=== PATIENT | female | born 1970 | race Caucasian/White ===

== ENCOUNTER 2025-03-13 21:48 | Emergency (ER) | payer SELFPAY ==
[2025-03-13 21:55] VITALS: BP 118/80
[2025-03-13 22:08] LABS: % Basophils 0.7 % (0-2); % Eosinophils 2.6 % (0-6); % Immature Granulocytes 0.2 % (0-0.5); % Lymphocytes 26.9 % (20.5-51.1); % Monocytes 6.9 % (1.7-9.3); % Neutrophils 62.7 % (42.2-75.2); Absolute Basophils 0.1 10^3/uL (0-0.2); Absolute Eosinophils 0.3 10^3/uL (0-0.7); Absolute Lymphocytes 3.3 10^3/uL (1.2-3.4); Absolute Monocytes 0.8 10^3/uL (0.1-0.6); Absolute Neutrophils 7.6 10^3/uL (1.4-6.5); Hemoglobin 13.4 g/dL (12.0-16.0); Mean Corp Hgb Conc. 35.3 g/dL (33.0-37.0); Mean Corpuscular Hgb 31.5 pg (27.0-31.0); Mean Corpuscular Volume 89.4 fL (81.0-99.0); Mean Platelet Volume 9.8 fL (7.4-10.4); Nucleated Red Blood Cells % 0 %; Platelet Count 245 10^3/uL (130-400); Red Blood Cell Count 4.25 10^6/uL (4.20-5.40); Red Cell Dist. Width 12.5 % (11.5-14.5); White Blood Cell Count 12.1 10^3/uL (4.8-10.8)
[2025-03-13 22:22] LABS: ALT (SGPT) 19 U/L (0-35); AST (SGOT) 21 U/L (14-36); Albumin 4.2 g/dl (3.5-5.0); Alkaline Phosphatase 70 U/L (38-126); Blood Urea Nitrogen 13 mg/dl (7-17); Calcium 9.4 mg/dl (8.4-10.2); Carbon Dioxide 25 mmol/L (22-30); Chloride 107 mmol/L (98-107); Glucose 94 mg/dl (70-99); Potassium 3.6 mmol/L (3.5-5.1); Sodium 141 mmol/L (135-145); Total Bilirubin 0.6 mg/dl (0.2-1.3); Total Protein 6.7 g/dl (6.3-8.2); eGFR > 60.00
[2025-03-13 22:42] VITALS: BMI 23.1
[2025-03-13 22:51] LABS: Lipase 235 U/L (23-300)
[2025-03-13 22:53] LABS: Urine Albumin Negative (Neg - Trace); Urine Bilirubin Negative (Negative); Urine Character Clear (Clear); Urine Color Yellow; Urine Glucose Negative (Negative); Urine Ketone Negative (Negative); Urine Leukocyte Negative (Negative); Urine Nitrite Negative (Negative); Urine Occult Blood Negative (Negative); Urine Urobilinogen Negative (Neg - 1+)
--- NOTE | 2025-03-13 23:30 | ED.GENMED ---
History of Present Illness
General
Chief Complaint: Abdominal Pain
Source: patient
Exam Limitations: none
Time Seen by Provider: 03/13/25 22:25
Nursing documentation reviewed up to this point in time: agreed with
History of Present Illness
History of Present Illness:
54-year-old female presenting to the emergency department with worsening left lower quadrant abdominal pain. Feels similar to diverticulitis in the past. Denies any fevers
Past History
Past History
ED Past Medical History: Arrthythmia (Occasional PVCs), HTN and Other (Back problems)
ED Past Surgical History:
Social History
Tobacco: Non-smoker
Alcohol: Occasional
Drug: None
Personal:
Living: with family
Employment: Employed
Family History
Family History: Other (Noncontributory)
Review of Systems
Review of Systems
Allergies reviewed?: Yes
All Other Systems: ROS reviewed and negative except as documented in HPI and ROS
Phy Exam
Physical Exam
Physical Exam:
GENERAL: Alert , in no apparent distress
EYE: pupils equal and reactive
NECK: Supple, no significant adenopathy.
ENT: o/p clr, mmm.
CARDIAC: Regular rate and rhythm .
LUNGS: Clear breath sounds bilaterally, no acute respiratory distress, no wheezes/rales/rhonchi
ABDOMEN: Tenderness palpation of the left lower quadrant otherwise soft, without focal tenderness, no r/g, no cvat
NEUROLOGICAL: Alert and oriented, no focal neuro deficits
SKIN: Warm and dry, skin intact.
MUSCULOSKELETAL: No edema, well perfused.
PSYCH: Normal and appropriate interaction.
Course
Orders/Labs/Results
Orders:
Orders
03/13/25 22:01
CMP [Comprehensive Metabolic Panel] Urgent
Complete Blood Count/With Diff Urgent
Lipase Urgent
Comment: ADD ON
03/13/25 22:33
Add On- LAB Urgent
Tests Added?: lipase
03/13/25 22:46
UA Reflex to Culture [Urinalysis Reflex To Culture] Urgent
Date Specimen was Collected: 03/13/25
Time Specimen was Collected: 22:33
03/14/25 00:00
CT Abd/Pel (IV only)-DH only Urgent
Reason For Exam: llq pain hx of diverticulitis
Abnormal Lab Results
03/13/25
22:01
WBC 12.1 H 10^3/uL
(4.8-10.8)
MCH 31.5 H pg
(27.0-31.0)
Absolute Neuts (auto) 7.6 H 10^3/uL
(1.4-6.5)
Absolute Monos (auto) 0.8 H 10^3/uL
(0.1-0.6)
03/13/25 22:01
03/13/25 22:01
Vital Signs
Initial and Last Documented VS:
Initial Vital Signs
Temp Pulse Resp BP Pulse Ox
99 F 100 20 118/80 100
03/13/25 21:55 03/13/25 21:55 03/13/25 21:55 03/13/25 21:55 03/13/25 21:55
Last Documented Vital Signs
Temp Pulse Resp BP Pulse Ox
99 F 100 20 118/80 100
03/13/25 21:55 03/13/25 21:55 03/13/25 21:55 03/13/25 21:55 03/13/25 21:55
MDM/Problems Addressed
MDM/Problems Addressed:
54-year-old female presenting with concerns of left lower quadrant abdominal pain worse no associated nausea vomiting no changes in bowel movements. Feels similar to previous episodes of diverticulitis. Labs showing slight white count show 12.1.
CT scan showing mild diverticulitis. Plan for symptomatic treatment at home. Advised for close outpatient follow-up. Return precautions given.
*Critical Care Note
Total Time (30-74mins, 75-104mins- exclusive of procedures): Not Applicable
ED Attending Note
-
Portions of this chart may have been created with voice recognition software.� Occasional wrong word or��sound alike� substitutions may have occurred due to the inherent limitations of voice recognition software.
Discharge Plan
Departure
Patient Disposition: Home (Routine Discharge)
Date of Disposition: 03/14/25
Time of Disposition: 00:59
Patient with high blood pressure during this ER visit?: No
Condition: Good
Covid-19: Not Applicable
Discharge Problem:
Diverticulitis
Instructions: Diverticulitis (DC)
Prescriptions:
New
ciprofloxacin HCl 500 mg tablet
500 mg PO BID 7 Days Qty: 14 0RF
metronidazole 500 mg tablet
500 mg PO Q8H 7 Days Qty: 21 0RF
No Action
metoprolol succinate 25 MG tablet extended release 24 hr
25 mg PO BID
levofloxacin in D5W 750 MG/150 ML piggyback
750 mg IV DAILY Qty: 10 0RF
metronidazole 500 MG tablet
500 mg PO TID Qty: 30 0RF
metronidazole 500 MG tablet
500 mg PO TID Qty: 30 0RF
Rx Instructions:
one pill three times a day for 10 days
ciprofloxacin HCl 500 MG tablet
500 mg PO BID Qty: 20 0RF
Rx Instructions:
1 pill twice a day for 10 days
doxycycline hyclate 100 mg tablet
100 mg PO BID Qty: 10 0RF
Referrals:
Josseline Hernandez DO [Family Provider] -
Activity Restrictions/Additional Instructions:
You came to the emergency department today with concerns of abdominal pain. You are found to have diverticulitis. Please have a liquid diet with slow progression over the next few days and also take pain medication. Please follow closely as an
outpatient with your GI doctor primary care. Return for any worsening, new or concerning symptoms.
Interventions
Interventions:
*Risk Screen - Suicide Last Done: 03/13/25 21:55
*General Assessment Last Done: 03/13/25 22:43
*Neglect/Abuse Screening Last Done: 03/13/25 21:55
*ED- Fall Risk Assessment Last Done: 03/13/25 22:43
*ED COVID-19 Vaccine History Last Done: 03/13/25 22:43
HQ-Ngiksi-Ummfkxyput Assessment Last Done: 03/13/25 22:43
Discharge Date and Time
Print Language: YAKUT
[2025-03-14 01:38] VITALS: BP 114/82
== END 2025-03-14 01:40 | disposition home or self-care (01) ==
LOC: EMR 21:48
PROVIDERS: Student in an Organized Health Care Education/Training Program; EMERGENCY PHYSICIAN Emergency Medicine; FAMILY PHYSICIAN Family Medicine
DX: K57.32 Diverticulitis of large intestine without perforation or abscess without bleeding (principal); I10 Essential (primary) hypertension
CPT/HCPCS: 99284; 74177; 80053; 81003; 83690; 85025; Q9967